=== PATIENT | female | born 1945 | race Caucasian/White ===

== ENCOUNTER 2023-01-31 09:40 | Outpatient (CLI) | payer MEDICARE, BC, SELFPAY | END 2023-01-31 09:41 | disposition home or self-care (01) | PROVIDERS: Visit Provider Family Medicine | DX: M54.16 Radiculopathy, lumbar region (principal); M51.36 Other intervertebral disc degeneration, lumbar region | CPT/HCPCS: 64483; J1100; Q9966 ==